=== PATIENT | female | born 1930 | race Caucasian/White ===

== ENCOUNTER 2016-05-27 02:34 | Emergency (ER) | payer MEDICARE, OTHER ==
[2016-05-27 03:28] LABS: BASOPHILS 0.1 % (0.0-2.0); EOSINOPHILS 14.3 % (0-7); HEMATOCRIT 38.1 % (36.0-48.0); HEMOGLOBIN 12.3 g/dL (12-16); IMMATURE GRANULOCYTES 0.4 % (0-5); MCH 31.3 pg (26.0-34.0); MCHC 32.3 g/dL (31.0-37.0); MCV 96.9 fL (80.0-100.0); MEAN PLATELET VOLUME 10.2 fL (7.4-10.4); MONOCYTES 7.5 % (2-11); NEUTROPHILS 65.7 % (40-80); PLATELET COUNT 226 10x3/uL (130-400); RBC 3.93 10x6/uL (4.00-5.40); RDW 13.7 % (11.5-14.5); WBC 12.2 10x3/uL (4.8-10.8)
[2016-05-27 03:38] LABS: ANION GAP 15.3 mmol/L (8-16); CALCIUM 9.2 mg/dL (8.5-10.1); CARBON DIOXIDE 25.2 mmol/L (21.0-32.0); CREATININE - SERUM 0.9 mg/dL (0.6-1.3); POTASSIUM - SERUM 3.5 mmol/L (3.5-5.1)
[2016-05-27 07:34] LABS: APPEARANCE CLEAR (CLEAR); BILIRUBIN NEGATIVE (NEGATIVE); COLOR YELLOW (YELLOW); GLUCOSE NEGATIVE (NEGATIVE); KETONE NEGATIVE (NEGATIVE); LEUKOCYTE ESTERASE TRACE (NEGATIVE); NITRITE NEGATIVE (NEGATIVE); PROTEIN NEGATIVE (NEGATIVE); SPECIFIC GRAVITY 1.015 (1.005-1.020); UROBILINOGEN NORMAL (NORMAL)
[2016-05-27 07:36] LABS: BACTERIA NONE SEEN /hpf (NONE SEEN); EPITHELIAL CELLS 0-5 /hpf (0-5); RED CELLS - URINE NONE SEEN /hpf (0-5); WHITE CELLS - URINE 0-5 /hpf (0-5)
[2016-05-30 13:41] VITALS: BMI 21.7
== END 2016-05-27 08:11 | disposition home or self-care (01) ==
LOC: EDBD 02:34 → D.ER 02:34
PROVIDERS: Emergency Medicine
DX: R41.82 Altered mental status, unspecified (principal); Z86.73 Personal history of transient ischemic attack (TIA), and cerebral infarction without residual deficits

== ENCOUNTER 2016-05-29 08:37 | Inpatient (IN) | payer MEDICARE, OTHER ==
[~2016-05-29] VITALS: Ht 170.2 cm; Wt 64.1 kg
[2016-05-29 09:17] LABS: BASOPHILS 0.3 % (0.0-2.0); EOSINOPHILS 14.4 % (0-7); HEMATOCRIT 35.7 % (36.0-48.0); HEMOGLOBIN 11.7 g/dL (12-16); IMMATURE GRANULOCYTES 0.2 % (0-5); LYMPHOCYTES 17.7 % (15-50); MCH 31.3 pg (26.0-34.0); MCHC 32.8 g/dL (31.0-37.0); MCV 95.5 fL (80.0-100.0); MONOCYTES 7.3 % (2-11); NEUTROPHILS 60.1 % (40-80); PLATELET COUNT 197 10x3/uL (130-400); RBC 3.74 10x6/uL (4.00-5.40); RDW 13.3 % (11.5-14.5); WBC 6.5 10x3/uL (4.8-10.8)
[2016-05-29 09:46] LABS: ALBUMIN 3.1 g/dL (3.4-5.0); ANION GAP 12.9 mmol/L (8-16); BILIRUBIN - TOTAL 0.83 mg/dL (0.2-1.3); CALCIUM 9.1 mg/dL (8.5-10.1); CARBON DIOXIDE 26.9 mmol/L (21.0-32.0); CREATININE - SERUM 0.9 mg/dL (0.6-1.3); POTASSIUM - SERUM 3.8 mmol/L (3.5-5.1)
[2016-05-29 09:57] LABS: TROPONIN-I 0.055 ng/mL (0.000-0.060)
--- NOTE | 2016-05-29 13:38 | NUR ---
REPORT RECIVED FROM SARAH ERNST IN ER. PT TO BE RECIVED TO ROOM 2140 AND PT TO HAVE MRI COMPLETED ONCE ARRIVED TO FLOOR REPORTED TO THIS NURSE THAT IV 18G TO LEFT AC AND 1000MG TYLENOL GIVEN IN ER FOR PAIN. WILL ASSESS PT ONCE ARRIVES TO FLOOR
[2016-05-29] MEDS ORDERED: AMOXICILLIN500 M1 PO (14:07)
--- NOTE | 2016-05-29 14:13 | NUR ---
PT ARRIVED FROM ER TO ROOM 2139 BY WHEELCHAIR FAMILY IN ROOM AT BEDSIDE HX COMPLETED AND MEDICATIONS REVIEWED FAMILY REPORTED THAT PT " HAS NOT TAKEN ANY OF HER MEDICATIONS IN ABOUT A MOUNTH OR SO AND I DONT KNOW WHAT SHE IS ALL ON AMOXICILLIN SHE TOOK YESTERDAY AND THAT WAS THE LAST TIME SHE TOOK ANY MEDS" SHERIE OWEN NOTIFIED OF PT ARRIVAL AND PT INFORMED THAT SHE IS TO BE TAKEN TO MRI RESPERATIONS EVEN AND UNLABORED WITH NO DISTRESS OBSERVED BED LOW AND LOKCED CALL LIGHT IN REACH SRX 2 BED ALARM IN AND WORKING WILL MONITOR
[2016-05-29 15:00] VITALS: BP 116/50
--- NOTE | 2016-05-29 16:54 | NUR ---
UP TO BSC . HAD A BM-SOFT STOOL. ASSISTED BACK TO BED. WILL CONTINUE TO MONITOR
--- NOTE | 2016-05-29 19:25 | NUR ---
RECEIVED REPORT, IV-SOPHIE-FADIA, [id number], BED IS LOW, SRX2, EXPLAINED HOW TO USE CALL LIGHT, CALL LIGHT IN REACH, WILL CONTINUE TO MONITOR
[2016-05-29 20:00] VITALS: BP 161/89
[2016-05-29 22:14] VITALS: BP 116/50; BMI 21.9
--- NOTE | 2016-05-30 00:27 | NUR ---
MATE FIRST AT BEDSIDE FOR VS, NEEDS ADDRESSED. CALL LIGHT IN REACH. WILL CONT TO MONITOR.
[2016-05-30 02:00] VITALS: BP 159/73
[2016-05-30 04:00] VITALS: BP 132/70
--- NOTE | 2016-05-30 04:04 | NUR ---
ASSIST TO BEDSIDE COMMODE, PLACED BACK IN BED, CALL LIGHT IN REACH, BED ALARM ON, WILL CONTINUE TO MONITOR
[2016-05-30 06:07] LABS: BASOPHILS 0.3 % (0.0-2.0); EOSINOPHILS 7.6 % (0-7); HEMATOCRIT 35.6 % (36.0-48.0); HEMOGLOBIN 11.5 g/dL (12-16); IMMATURE GRANULOCYTES 0.1 % (0-5); LYMPHOCYTES 20.8 % (15-50); MCH 30.7 pg (26.0-34.0); MCHC 32.3 g/dL (31.0-37.0); MCV 94.9 fL (80.0-100.0); MEAN PLATELET VOLUME 11.1 fL (7.4-10.4); MONOCYTES 9.2 % (2-11); PLATELET COUNT 202 10x3/uL (130-400); RBC 3.75 10x6/uL (4.00-5.40); RDW 13.1 % (11.5-14.5); WBC 6.9 10x3/uL (4.8-10.8)
[2016-05-30 06:19] LABS: ALKALINE PHOSPHATASE 68 U/L (46-116); BILIRUBIN - TOTAL 0.78 mg/dL (0.2-1.3); CALC OSMOLALITY 278 mosm/kg (275-300); CALCIUM 8.7 mg/dL (8.5-10.1); CARBON DIOXIDE 25.8 mmol/L (21.0-32.0); CHLORIDE - SERUM 106 mmol/L (98-107); CREATININE - SERUM 0.7 mg/dL (0.6-1.3); GLUCOSE 97 mg/dL (74-106); POTASSIUM - SERUM 3.5 mmol/L (3.5-5.1); PROTEIN - SERUM 6.7 g/dL (6.4-8.2); SODIUM 140 mmol/L (136-145); UREA NITROGEN 12 mg/dL (7-18); eGFR NON AFRICAN AMERICAN 84 mL/min (90-120)
[2016-05-30 06:20] LABS: ALT (SGPT) 11 U/L (10-68)
--- NOTE | 2016-05-30 07:38 | NUR ---
RECEIVED PT REPORT. NO OTHER NEEDS AT THIS TIME. WILL CONTINUE PLAN OF CARE.
[2016-05-30 08:39] VITALS: BP 136/64
--- NOTE | 2016-05-30 10:50 | NUR ---
PT IS ALERT. ASSESSMENT DONE PER FLOWSHEET. NO CO PAIN AT THIS TIME. WILL CONTINUE TO MONTIOR.
[2016-05-30 13:41] VITALS: Ht 170.2 cm; Wt 64.1 kg
--- NOTE | 2016-05-30 15:23 | HP ---
PATIENT: SHAJI PIRES MEDICAL RECORD: [id number] ACCOUNT: [id number] LOCATION:[facility] D.2140 : 30 ADMISSION DATE: 05/29/16 HISTORY AND PHYSICAL EXAMINATION HISTORY OF PRESENT ILLNESS: Ms. Pires is an 85-year-old patient, who have healthy connections are presents after having a fall. She lives alone with her sister. She denies any tripping or dizziness. She is wearing a LifeVest, which apparently fired. She is accompanied by her daughter today. Dr. Carrillo is her breaker off. She is complaining of low back pain, worse since her fall. PAST MEDICAL HISTORY: Significant for dementia, myocardial infarction in ____ year. Since that time, she has been wearing a LifeVest. She apparently had some arrhythmias afterwards, also has hypertension. PREVIOUS SURGERIES: Include gallbladder. ALLERGIES: None known. HOME MEDICATIONS: She was taking some amoxicillin recently. FAMILY HISTORY: Noncontributory. SOCIAL HISTORY: She is not a smoker. 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 She has been staying with her sister here in [place]. REVIEW OF SYSTEMS: She has had some memory issues, some weakness in her recent fall. She denies any chest pain, any dizziness, any palpitations. She denies any shortness of breath. She denies any change in bladder or bowel function. She is complaining of back pain. PHYSICAL EXAMINATION: HEENT: Head is normocephalic, sclerae nonicteric. NECK: Soft and supple. HEART: Regular. LUNGS: Clear. ABDOMEN: Soft. No rebound, no guarding, no mass. NEUROLOGIC: Without any gross focal deficits. IMPRESSIONS: 1. Apparent firing of LifeVest. 2. Low back pain, worrisome for compression fracture, dementia and coronary artery disease with myocardial infarction approximately 4 months ago, cardiac arrhythmia. PLAN: Place her on telemetry. We will get MRI of lumbar spine. Consult cardiology. LifeVest, people have already been here to interrogate Vest and were still waiting on what that showed. Telemetry to see orders for rest of the plan. TRANSINT:[id number] Voice Confirmation ID: [id number] DOCUMENT ID: [id number] HISTORY AND PHYSICAL [id number] SHAJI PIRES MATTHEW DO at 1523 CC: [id number] DICTATION DATE: 05/29/16 164 PROFESSOR OF MECHANICAL ENGINEERING: 05/29/16 1908 ADM IN [facility] [address] [id number]
[2016-05-30 15:42] VITALS: BP 139/63
--- NOTE | 2016-05-30 20:00 | NUR ---
PT RESTING IN BED. DAUGHTER AT BEDSIDE. ALERT/ORIENTED WITH SOME INTERMITENT CONFUSION/FORGETFULNESS. SALINE LOCK TO LEFT A/C. SR PER TELEMETRY. FALL PRECAUTIONS/BED ALARM ON. SEE COMPLETED SHIFT ASSESSMENT. CPOC.
[2016-05-30 21:03] VITALS: BP 121/73
--- NOTE | 2016-05-30 23:59 | NUR ---
FREQUENTLY IN ROOM TO RESET BED ALARM SINCE PT IS PRONE TO SIT ON SIDE OF BED AND "JUST BE". CLOSE SUPERVISION.
[2016-05-31 01:48] VITALS: BP 117/69
--- NOTE | 2016-05-31 04:04 | NUR ---
DISCONTINUED PT'S ORDERED MORPHINE AT THIS TIME DUE TO FAMILY STATES PT BECOMES VERY CONFUSED/AGITATED/RESTLESS AND DIFFICULT TO HANDLE WHEN GIVEN MORPHINE. LISTED NOW ADR FOR PATIENT.
--- NOTE | 2016-05-31 05:23 | NUR ---
ASSISTED UP TO USE BEDSIDE COMMODE. PT VOIDED THEN ASSISTED BACK TO BED. PT HAS BEEN AWAKE MOST OF THE NIGHT, YET TELLS NURSE "WELL I SURE HAVE BEEN ASLEEP ALOT". VERY POOR SHORT TERM RECALL.
[2016-05-31 06:00] VITALS: BP 152/84
[2016-05-31 06:28] LABS: BASOPHILS 0.1 % (0.0-2.0); EOSINOPHILS 8.1 % (0-7); HEMATOCRIT 34.6 % (36.0-48.0); HEMOGLOBIN 11.3 g/dL (12-16); IMMATURE GRANULOCYTES 0.1 % (0-5); LYMPHOCYTES 20.4 % (15-50); MCH 30.9 pg (26.0-34.0); MCHC 32.7 g/dL (31.0-37.0); MCV 94.5 fL (80.0-100.0); MEAN PLATELET VOLUME 10.4 fL (7.4-10.4); MONOCYTES 12.9 % (2-11); NEUTROPHILS 58.4 % (40-80); PLATELET COUNT 206 10x3/uL (130-400); RBC 3.66 10x6/uL (4.00-5.40); RDW 13.4 % (11.5-14.5); WBC 7.1 10x3/uL (4.8-10.8)
[2016-05-31 07:09] LABS: ALKALINE PHOSPHATASE 73 U/L (46-116); ALT (SGPT) 16 U/L (10-68); BILIRUBIN - TOTAL 0.51 mg/dL (0.2-1.3); CALC OSMOLALITY 283 mosm/kg (275-300); CALCIUM 8.8 mg/dL (8.5-10.1); CARBON DIOXIDE 25.8 mmol/L (21.0-32.0); CHLORIDE - SERUM 107 mmol/L (98-107); CREATININE - SERUM 0.7 mg/dL (0.6-1.3); GLUCOSE 112 mg/dL (74-106); POTASSIUM - SERUM 3.5 mmol/L (3.5-5.1); PROTEIN - SERUM 6.6 g/dL (6.4-8.2); SODIUM 142 mmol/L (136-145); UREA NITROGEN 13 mg/dL (7-18); eGFR NON AFRICAN AMERICAN 84 mL/min (90-120)
[2016-05-31 08:00] VITALS: BP 110/58
--- NOTE | 2016-05-31 08:44 | NUR ---
PT JAYRO/WARREN PIRES CALLED TO ADVISE NOT TO PROCEED WITH BACK SURGERY AND OK TO SEND TO REHAB. I ADVISED I WOULD RELAY THIS INFORMATION TO SHERIE/PING WITH DR. DANIELS. SHE STATED SHE COULD BE REACHED AT [phone] IF NEEDED FOR FURTHER QUESTIONS.
--- NOTE | 2016-05-31 09:58 | NUR ---
PT IS ALERT. ASSESSMENT DONE PER FLOWSHEET. NO OTHER NEEDS AT THIS TIME. WILL CONTINUE TO MONITOR.
[2016-05-31 12:00] VITALS: BP 110/62
[2016-05-31 16:00] VITALS: BP 111/69
--- NOTE | 2016-05-31 19:17 | NUR ---
Received report from Yue ERNST.
--- NOTE | 2016-05-31 19:32 | NUR ---
Received patient sitting up in bed visiting with daughter at bedside, bed alarm on, Left AC PIV is SL, groundwater monitoring technician on, rhythm is SR with occasional PVCs. Oriented to person and place at this time, somewhat anxious. Will check for antianxiety medication available.
--- NOTE | 2016-05-31 20:44 | NUR ---
SHERIE MICHAEL APN PAGED FOR PAIN MEDS AND SLEEP AID, AWAITING CALL BACK.
--- NOTE | 2016-05-31 20:53 | NUR ---
Given Tylenol with codeine tab by another clinician as per MD orders for back pain rated 10/10. Patient states she fell 2 weeks ago and hurt her back. Also given Melatonin 3mg po PRN for sleep.
[2016-05-31 21:39] VITALS: BP 102/71
--- NOTE | 2016-06-01 01:00 | NUR ---
PRNs deemed effective, has been sleeping x 2 hours, respirations easy and regular, no restlessness noted.
[2016-06-01 01:40] VITALS: BP 107/69
--- NOTE | 2016-06-01 02:07 | NUR ---
Given Tylenol #3 given for severe back pain and generalized aches and pains, rated 10/10. Extremely anxious, hyperventillating, having panic attack, talked with patient for verbal 1:1. Encouraged to take deep breaths and calm behavior. Assisted back into bed, had been sitting up. Will continue to monitor.
[2016-06-01 04:56] VITALS: BP 113/46
[2016-06-01 06:05] LABS: BASOPHILS 0.1 % (0.0-2.0); EOSINOPHILS 11.9 % (0-7); HEMATOCRIT 33.3 % (36.0-48.0); HEMOGLOBIN 10.9 g/dL (12-16); IMMATURE GRANULOCYTES 0.1 % (0-5); LYMPHOCYTES 23.8 % (15-50); MCH 31.1 pg (26.0-34.0); MCHC 32.7 g/dL (31.0-37.0); MCV 94.9 fL (80.0-100.0); MEAN PLATELET VOLUME 10.3 fL (7.4-10.4); MONOCYTES 11.3 % (2-11); NEUTROPHILS 52.8 % (40-80); PLATELET COUNT 224 10x3/uL (130-400); RBC 3.51 10x6/uL (4.00-5.40); RDW 13.5 % (11.5-14.5); WBC 6.8 10x3/uL (4.8-10.8)
[2016-06-01 06:25] LABS: ALBUMIN 2.8 g/dL (3.4-5.0); ANION GAP 11.7 mmol/L (8-16); BILIRUBIN - TOTAL 0.5 mg/dL (0.2-1.3); CALCIUM 8.4 mg/dL (8.5-10.1); CARBON DIOXIDE 26.6 mmol/L (21.0-32.0); CREATININE - SERUM 0.8 mg/dL (0.6-1.3); POTASSIUM - SERUM 3.3 mmol/L (3.5-5.1); PROTEIN - SERUM 6.1 g/dL (6.4-8.2)
--- NOTE | 2016-06-01 07:17 | NUR ---
Given potassium supplement per electrolyte protocol for K+ = 3.3
[2016-06-01 08:01] VITALS: BP 153/67
--- NOTE | 2016-06-01 08:32 | NUR ---
PATIENT IS AWAKE AND ALERT, SHE RATES PAIN 5/10 ONLY IF SHE MOVES, BUT SHE SAYS SHE IS OK RIGHT NOW.
--- NOTE | 2016-06-01 11:48 | NUR ---
Is the patient Alert and Oriented? Yes 0 * How many steps to enter\exit or inside your home? 5 0 * PCP DR. LAZAR IN [place] 0 * Pharmacy [facility] 0 * Preadmission Environment Home with Family 0 * ADLs Independent 0 * Equipment Walker 0 * List name and contact numbers for known caregivers / representatives who currently or will assist patient after discharge: DAUGHTER: WARREN PIRES [phone] SISTER: ASHLEY HERNANDEZ [phone] 0 * Community resources currently utilized None 0 * Additional services required to return to the preadmission environment? No 0 * Can the patient safely return to the preadmission environment? Yes 0 * Has this patient been hospitalized within the prior 30 days at any hospital? No PATIENT IS AWAKE AND ALERT. SHE STATES SHE LIVES AT HOME WITH HER SISTER, ASHLEY HERNANDEZ. SHE STATES THAT HER MD IS DR. LAZAR IN [place]. PATIENT GETS HER MEDS FROM [facility]. SHE TELLS ME SHE HAS A WALKER SHE UTILIZES AT HOME. PATIENT DENIES HOME HEALTH CARE. PATIENT UNSURE ABOUT SOME OF HER ANSWERS AND STATES I NEED TO TALK TO HER DAUGHTER LATER THIS AFTERNOON. PATIENT MAY BENEFIT FROM ACUTE REHAB. SHE STATES I SHOULD TALK TO HER DAUGHTER ABOUT THAT. PATIENT WAS GIVEN IMM AND EXPLAINED. PATIENT SIGNED AND STATED SHE WILL GIVE IT TO HER DAUGHTER LATER TODAY. CM TO FOLLOW.
[2016-06-01 12:24] VITALS: BP 116/68
[2016-06-01] MEDS ORDERED: HYDROCODON-ACE1 EAC7 PO (13:32)
[2016-06-01] MEDS ORDERED: ACETAMINOPHEN325 MG PO (13:33)
[2016-06-01] MEDS ORDERED: COREG6.25 MG PO (13:34)
[2016-06-01] MEDS ORDERED: ARICEPT5 MG PO (13:34)
[2016-06-01] MEDS ORDERED: ALDACTONE25 MG PO (13:35)
[2016-06-01] MEDS ORDERED: ZOCOR20 MG PO (13:35)
[2016-06-01] MEDS ORDERED: LISINOPRIL5 MG PO (13:35)
[2016-06-01] MEDS ORDERED: TRAZODONE HCL50 MG PO (13:36)
[2016-06-01] MEDS ORDERED: CELEXA20 MG PO (13:36)
--- NOTE | 2016-06-01 13:38 | NUR ---
RECEIVED MEDICATION LIST. PATIENT AND DAUGHTER SAY ONE OF THE MEDS GIVES HER DIARRHEA, BUT SHE WAS PRESCRIBED BENTYL, UNSURE OF DOSE OR TIMES.
--- NOTE | 2016-06-01 14:54 | NUR ---
SPOKE WITH PATIENT, HER DAUGHTER, AND DR. DANIELS. PATIENT'S DAUGHTER WANTS HER TO GO TO [facility] IN [place]. SHE STATES IT IS CLOSE TO HER HOME AND IT WOULD BE EASIER FOR HER THAN HERE IN [place]. I PHONED ACUTE REHAB AT [facility] AT [phone]. I HAVE FAXED HER INFORMATION TO [facility] AT [phone]. WILL AWAIT RESPONSE. I HAVE LET THE PATIENT AND HER DAUGHTER KNOW OF THE REFERRAL AND WILL LET THEM KNOW WHEN WE HEAR BACK FROM THEM. CM TO FOLLOW.
--- NOTE | 2016-06-01 15:00 | NUR ---
WENT INTO PATIENT'S ROOM AND LOOKED AT THE COMPUTER SHE SAID "OH YOU CAN TURN THAT OFF" BUT THEN SHE SAID "I DIDN'T WANT THE TV OFF". PATIENT HAS INTERMITTANT CONFUSION.
[2016-06-01 16:00] VITALS: BP 109/70
--- NOTE | 2016-06-01 16:50 | NUR ---
ASSISTED PATIENT TO BSC, SHE IS SOMEWHAT CONFUSED, BUT SHE DOES UNDERSTAND ENOUGH NOT TO GET UP BY HERSELF DURING THE DAY.
--- NOTE | 2016-06-01 18:00 | NUR ---
DENIES ANY NEEDS AT THIS TIME.
[2016-06-01 20:00] VITALS: BP 114/73
[2016-06-02] VITALS: BP 123/69
[2016-06-02 04:00] VITALS: BP 128/70
[2016-06-02 05:35] LABS: APPEARANCE CLEAR (CLEAR); BILIRUBIN NEGATIVE (NEGATIVE); COLOR YELLOW (YELLOW); GLUCOSE NEGATIVE (NEGATIVE); KETONE NEGATIVE (NEGATIVE); LEUKOCYTE ESTERASE NEGATIVE (NEGATIVE); NITRITE NEGATIVE (NEGATIVE); PROTEIN NEGATIVE (NEGATIVE); SPECIFIC GRAVITY 1.015 (1.005-1.020); UROBILINOGEN NORMAL (NORMAL)
[2016-06-02 06:46] LABS: BASOPHILS 0.6 % (0.0-2.0); EOSINOPHILS 16.4 % (0-7); HEMATOCRIT 32.8 % (36.0-48.0); HEMOGLOBIN 10.6 g/dL (12-16); IMMATURE GRANULOCYTES 0.1 % (0-5); LYMPHOCYTES 23.1 % (15-50); MCH 30.9 pg (26.0-34.0); MCHC 32.3 g/dL (31.0-37.0); MCV 95.6 fL (80.0-100.0); MEAN PLATELET VOLUME 10.4 fL (7.4-10.4); MONOCYTES 11.2 % (2-11); NEUTROPHILS 48.6 % (40-80); PLATELET COUNT 234 10x3/uL (130-400); RBC 3.43 10x6/uL (4.00-5.40); RDW 13.8 % (11.5-14.5); WBC 6.7 10x3/uL (4.8-10.8)
--- NOTE | 2016-06-02 06:47 | NUR ---
ASSISTED PT UP TO BEDSIDE COMMODE SEVERAL TIMES TO VOID. COLLECTED URINE AND SENT TO LAB. WILL CONTNUE TO MONITOR.
[2016-06-02 07:06] LABS: ALBUMIN 2.8 g/dL (3.4-5.0); ANION GAP 9.9 mmol/L (8-16); BILIRUBIN - TOTAL 0.39 mg/dL (0.2-1.3); CALCIUM 8.4 mg/dL (8.5-10.1); CARBON DIOXIDE 28.1 mmol/L (21.0-32.0); CREATININE - SERUM 0.8 mg/dL (0.6-1.3); PROTEIN - SERUM 6.2 g/dL (6.4-8.2)
--- NOTE | 2016-06-02 08:02 | NUR ---
ASSESSMENT DONE. PT SITTING UP ON SIDE OF BED, READING NEWS PAPER. A/O X3. DENIES PAIN OR NEEDS AT THIS TIME. NO DISTRESS NOTED. CALL LIGHT WITH IN REACH. WILL CONT. TO MONITOR.
[2016-06-02 08:22] VITALS: BP 129/64
--- NOTE | 2016-06-02 10:26 | NUR ---
WALKING IN HALLWAY WITH THERAPY TOLERATING WELL
--- NOTE | 2016-06-02 11:34 | NUR ---
06/02/2016 10:50 DCP: Discharge Planning Referral as sent yesterday to [facility] in [place] yesterday afternoon by ANJU Michel (Not [facility]). Rec'd call from Jessie with [facility] - they have accepted patient & will transport via facility van today at 1300. Patient will transfer to a halfway bed. Nursing to call report to , 2nd Floor. Spoke with daughter, Nicol García via telephone. She is agreeable to POC. She states she will meet patient at the facility to complete admission paperwork. Answered questions. [facility] [address] [facility], [place] - - Fax
--- NOTE | 2016-06-02 11:35 | NUR ---
06/02/2016 10:50 DCP: Discharge Planning Referral as sent yesterday to [facility] in [place] yesterday afternoon by ANJU Michel (Not [facility]). Rec'd call from Jessie with [facility] - they have accepted patient & will transport via facility van today at 1300. Patient will transfer to a senior care bed. Nursing to call report to , 2nd Floor. Spoke with daughter, Nicol García via telephone. She is agreeable to POC. She states she will meet patient at the facility to complete admission paperwork. Answered questions. [facility] [address] [facility], [place] - - Fax
--- NOTE | 2016-06-02 12:04 | NUR ---
REPORT CALLED TO [facility] AND [facility] @ [phone]. FACILITY TRANSPORTATION WILL PICK PT UP AT 1300.
[2016-06-02 12:42] VITALS: BP 138/77
--- NOTE | 2016-06-02 12:42 | NUR ---
NURSE WENT OVER D/C INSTRUCTIONS WITH PT. IV REMOVED, AND TELEMETRY REMOVED. NURSE ASSITED PT WITH DRESSING, AND WITH PACKING BELONGINGS. PT TO D/C TO [facility], AWAITING FACILITY TRANSPORTATION TO ARRIVE.
--- NOTE | 2016-06-02 13:54 | NUR ---
PT D/C'D TO REHAB FACILITY VIA FACILITY TRANSPORTATION. CALLED PT'S DAUGHTER WARREN AND NOTIFIED HER OF PT'S DEPARTURE. PT'S BELONGINGS WENT WITH PT.
== END 2016-06-02 13:52 | DRG 552 ==
LOC: EDBD 08:37 → D.ER 08:37 → D.M2 13:28
PROVIDERS: Family Medicine; Specialist; ADMIT Family Medicine
DX: S32.059A Unspecified fracture of fifth lumbar vertebra, initial encounter for closed fracture (principal); I42.9 Cardiomyopathy, unspecified; Z95.811 Presence of heart assist device; W19.XXXA Unspecified fall, initial encounter; I25.10 Atherosclerotic heart disease of native coronary artery without angina pectoris; I11.0 Hypertensive heart disease with heart failure; I50.9 Heart failure, unspecified; F03.90 Unspecified dementia, unspecified severity, without behavioral disturbance, psychotic disturbance, mood disturbance, and anxiety; Z98.61 Coronary angioplasty status; M54.16 Radiculopathy, lumbar region

== ENCOUNTER 2017-06-06 11:37 | Inpatient (IN) | payer MEDICARE ==
--- NOTE | ~2017-06-06 | PN ---
PATIENT:SHAJI PIRES MEDICAL RECORD: [id number] LOCATION:[facility] ADMISSION DATE: 06/06/17 PROGRESS NOTE DATE OF SERVICE: 06/16/2017 SUBJECTIVE: The patient's case was discussed with staff. She has no new complaint. OBJECTIVE: The patient is demented, but not acutely dangerous. ASSESSMENT: No change in diagnoses. PLAN: Once placement is arranged, the patient will be transitioned out of the hospital. TRANSINT:[id number] Voice Confirmation ID: [id number] DOCUMENT ID: [id number] FREDI CENTENO MD at 1844 CC: [id number] DICTATION DATE: 06/16/17 1111 MATHEMATICIAN RESEARCH: 06/17/17 0057 ADM IN [id number] [place] [address]
--- NOTE | ~2017-06-06 | PN ---
PATIENT:SHAJI PIRES MEDICAL RECORD: [id number] LOCATION:[facility] ADMISSION DATE: 06/06/17 PROGRESS NOTE DATE OF SERVICE: 06/11/2017 SUBJECTIVE: The patient's case was discussed with staff. She has no new complaint. OBJECTIVE: The patient is impaired cognitively. She denies that she would seek to harm herself or others. ASSESSMENT: No change in diagnoses. PLAN: Current medicines have been reviewed and will be maintained. Long-term prognosis is guarded. TRANSINT:[id number] Voice Confirmation ID: [id number] DOCUMENT ID: [id number] FREDI CENTENO MD at 1344 CC: [id number] DICTATION DATE: 06/11/17 1432 GEOPHYSICAL PROSPECTING SURVEYOR: 06/11/17 1450 ADM IN [place] [id number] [place] [address]
--- NOTE | ~2017-06-06 | PN ---
PATIENT:SHAJI PIRES MEDICAL RECORD: [id number] LOCATION:[facility] ADMISSION DATE: 06/06/17 PROGRESS NOTE DATE OF SERVICE: 06/18/2017 SUBJECTIVE: The patient's case was discussed with staff. She has no new complaint. OBJECTIVE: The patient is in good behavioral control with limited insight about her condition. She tolerates her medicines well. ASSESSMENT: No change in diagnoses. PLAN: I anticipate the patient will be transitioned out of the hospital soon. Her long-term prognosis is guarded. TRANSINT:[id number] Voice Confirmation ID: [id number] DOCUMENT ID: [id number] FREDI CENTENO MD at 1016 CC: [id number] DICTATION DATE: 06/18/171910 KIDS ACTIVITIES COACH: 06/19/17 0338 ADM IN [facility] [address] [place] [address]
--- NOTE | ~2017-06-06 | PN ---
PATIENT:SHAJI PIRES MEDICAL RECORD: [id number] LOCATION:[facility] ADMISSION DATE: 06/06/17 PROGRESS NOTE DATE OF SERVICE: 06/20/2017 SUBJECTIVE: The patient's case was discussed with staff. She has no new complaint. OBJECTIVE: The patient is in good behavioral control. She is eating and sleeping reasonably well. ASSESSMENT: No change in diagnoses. PLAN: The patient will be transitioned out of the hospital tomorrow. Her long-term prognosis is guarded. Supportive and educational interventions were made. Follow up is to be with her primary care physician. TRANSINT:[id number] Voice Confirmation ID: [id number] DOCUMENT ID: [id number] FREDI CENTENO MD at 1403 CC: [id number] DICTATION DATE: 06/20/17 1457 BEAM SAW OPERATOR: 06/20/17 1609 ADM IN [place] [id number] [place] [id number]
--- NOTE | ~2017-06-06 | PN ---
PATIENT:SHAJI PIRES MEDICAL RECORD: [id number] LOCATION:[facility] ADMISSION DATE: 06/06/17 PROGRESS NOTE DATE OF SERVICE: 06/19/2017 SUBJECTIVE: The patient's case was discussed with staff. She has no new complaint. OBJECTIVE: The patient denies intent to harm herself or others. She is generally tolerating her medicines well. ASSESSMENT: No change in diagnoses. PLAN: The patient may be transitioned to the senior care as soon as placement is arranged. TRANSINT:[id number] Voice Confirmation ID: [id number] DOCUMENT ID: [id number] FREDI CENTENO MD at 1444 CC: [id number] DICTATION DATE: 06/19/17 1525 PATTERN CLERK: 06/19/17 1606 ADM IN [place] [id number] [place] [address]
--- NOTE | ~2017-06-06 | PN ---
PATIENT:SHAJI PIRES MEDICAL RECORD: [id number] LOCATION:[facility] ADMISSION DATE: 06/06/17 PROGRESS NOTE DATE OF SERVICE: 06/08/2017 SUBJECTIVE: No new complaint. OBJECTIVE: The patient continues to show confusion and anxiety. She is resistant to activities of daily living and tends to be noncompliant. On exam, mood is anxious. Affect is expansive and somewhat histrionic. Speech is tangential. Content of thought focuses on somatic complaints. Sensorium does not show change. ASSESSMENT: No change in diagnoses. PLAN: 1. Maintain current medication. 2. Continue supportive therapy. TRANSINT:[id number] Voice Confirmation ID: [id number] DOCUMENT ID: [id number] RAAD JIMENEZ III, MD at 1341 CC: [id number] DICTATION DATE: 06/08/17 1150 INSTRUCTOR MILITARY SCIENCE: 06/08/17 1202 ADM IN [facility] [address] [place] [address]
--- NOTE | ~2017-06-06 | PN ---
PATIENT:SHAJI PIRES MEDICAL RECORD: [id number] LOCATION:[facility] ADMISSION DATE: 06/06/17 PROGRESS NOTE DATE OF SERVICE: 06/15/2017 SUBJECTIVE: No new complaint. OBJECTIVE: The patient is pleasant on approach. Mood is euthymic. Affect is very bland. Speech is terse. Content of thought negative for overt psychosis. Sensorium unchanged. ASSESSMENT: No change in diagnosis. PLAN: 1. Maintain current medication. 2. Continue supportive therapy. TRANSINT:[id number] Voice Confirmation ID: [id number] DOCUMENT ID: [id number] RAAD JIMENEZ III, MD at 1037 CC: [id number] DICTATION DATE: 06/15/17 1118 MANAGER EXPORT: 06/15/17 1349 ADM IN [place] [address] [place] [address]
--- NOTE | ~2017-06-06 | PN ---
PATIENT:SHAJI PIRES MEDICAL RECORD: [id number] [facility] ADMISSION DATE: 06/06/17 PROGRESS NOTE DATE OF SERVICE: 06/14/2017 The patient is ready for discharge. Discharge plans are in place. We are waiting for the retirement to accept her and then she can be transitioned out of the hospital. There are no acute or new clinical needs that need to be addressed. TRANSINT:[id number] Voice Confirmation ID: [id number] DOCUMENT ID: [id number] FREDI CENTENO MD at 0804 CC: [id number] DICTATION DATE: 06/14/17 1417 QUALITY ASSURANCE PROJECT MANAGER: 06/14/17 1431 ADM IN [address] [id number] [place] [address]
--- NOTE | ~2017-06-06 | DS ---
PATIENT:SHAJI PIRES :30 MEDICAL RECORD: [id number] DISCHARGE SUMMARY ADMISSION DATE: 06/06/17 DISCHARGE DATE: 06/21/17 IDENTIFYING DATA: The patient is 86 years old and she was admitted to the hospital on a voluntary basis because of suicidal statements. The patient apparently had been frustrated and was having thoughts of killing herself and made some verbal threats that she would do so. Apparently, she has made these statements regularly and when asked about it, she minimizes what she is saying and says that she get did not really have a plan or intent. I am not sure I understand why this particular incident precipitated a referral to inpatient services and the patient was not very helpful in explaining that. She clearly is impaired cognitively and she does endorse a number of neurovegetative depressive symptoms. HOSPITAL COURSE: The patient was admitted to the hospital and fully evaluated from both a medical, psychological, and social standpoint. She will be treated with both mood stabilizing and memory enhancing medications. Her long-term prognosis is guarded. She was subsequently returned to long-term care and did not represent an acute danger at the time of discharge. DISCHARGE DIAGNOSES: AXIS I: 1. Senile dementia of the Alzheimer's type with behavioral disturbances. 2. 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 AXIS II: None. AXIS III: Hypertension, coronary artery disease, cardiac arrhythmia. AXIS IV: Moderate stressors. AXIS V: Global assessment of functioning is 40. PLAN: At the time of discharge, the patient was in good behavioral control and did not represent an acute risk to herself or others. Her long-term prognosis is guarded. TRANSINT:[id number] Voice Confirmation ID: [id number] DOCUMENT ID: [id number] FREDI CENTENO MD at 1419 CC: [id number] DICTATION DATE: 06/28/17 1341 LEATHER GRADER: 06/28/17 1347 DIS IN 06/21/17 [place] [id number] [place] [id number]
--- NOTE | ~2017-06-06 | PSY ---
PATIENT NAME:SHAJI PIRES MEDICAL RECORD: [id number] : 30 LOCATION:[facility] ADMISSION DATE: 06/06/17 ACCOUNT: [id number] PSYCHIATRIC EVALUATION DATE OF EVALUATION: 06/07/17 IDENTIFYING DATA: The patient is 86 years old and she is admitted to the hospital on a voluntary basis. CHIEF COMPLAINT: Suicidal statements. HISTORY OF PRESENT ILLNESS: The patient apparently has been frustrated and has been threatening to kill herself. She apparently makes these demands regularly, but when asked about it, she very much minimizes that she would do so and says she does not have a plan or intent. She does endorse a number of neurovegetative depressive symptoms and she also has clear evidence of an advanced dementia. PAST MEDICAL HISTORY: Significant for myocardial infarction and hypertension. PAST PSYCHIATRIC HISTORY: Significant for an established diagnosis of dementia and an anxiety disorder. FAMILY HISTORY: Unknown. ALLERGIES: MORPHINE. CURRENT MEDICATIONS: Include Coreg, Aricept, Tylenol, Aldactone, Zocor, Celexa, and trazodone. FAMILY HISTORY: Negative for psychiatric problems by her report. SOCIAL HISTORY: The patient is . She does have adult children who are involved with her care. She apparently lives with her sister, but has a daughter who lives out of town, who is her power of deputy commonwealth's attorney. MENTAL STATUS EXAMINATION: The patient is awake, alert, and oriented to person, place, and somewhat to time and situation. Her mood is flat. Her affect is constricted. Thought processes are circumstantial. Memory, concentration, and abstraction abilities are at least moderately impaired and she denies that she would actively seek to harm herself or others as well as any overt psychotic symptoms. ASSETS: Supportive family members. LIABILITIES: Limited insight. DIAGNOSTIC IMPRESSION: AXIS I: Senile dementia of the Alzheimer's type with behavioral disturbances. 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 AXIS II: Deferred. AXIS III: Hypertension, coronary artery disease, and cardiac arrhythmia. AXIS IV: Moderate stressors. AXIS V: Global assessment of functioning is 35. PLAN: At this time, the patient is going to be treated with mood stabilizing and memory enhancing medications. She will be monitored for clinical changes associated with this. Her long-term prognosis is guarded. TRANSINT:[id number] Voice Confirmation ID: [id number] DOCUMENT ID: [id number] FREDI CENTENO MD at 1403 CC: [id number] DICTATION DATE: 06/07/17 140 PHOTOGRAPHER: 06/07/17 1418 ADM IN [facility] [address] [place] [id number]
--- NOTE | ~2017-06-06 | PN ---
PATIENT:SHAJI PIRES MEDICAL RECORD: [id number] LOCATION:[facility] ADMISSION DATE: 06/06/17 PROGRESS NOTE DATE OF SERVICE: 06/13/2017 SUBJECTIVE: The patient's case was discussed with staff. She has no new complaint. OBJECTIVE: The patient is in good behavioral control and has not been aggressive today. ASSESSMENT: No change in diagnoses. PLAN: Supportive and educational interventions were made. Long-term prognosis is guarded. TRANSINT:[id number] Voice Confirmation ID: [id number] DOCUMENT ID: [id number] FREDI CENTENO MD at 1341 CC: [id number] DICTATION DATE: 06/13/17 1238 FACILITIES ENGINEER: 06/13/17 1303 ADM IN [place] [id number] [place] [id number]
--- NOTE | ~2017-06-06 | PN ---
PATIENT:SHAJI PIRES MEDICAL RECORD: [id number] LOCATION:[facility] ADMISSION DATE: 06/06/17 PROGRESS NOTE DATE OF SERVICE: 06/12/2017 SUBJECTIVE: The patient's case was discussed with staff. She has no new complaint. OBJECTIVE: The patient is severely impaired cognitively, but not openly aggressive or hostile. She is tolerating her medicines well. Dr. Mi tested her today and as I expected, she scored in the severe range. Because of circumstances and reasons documented elsewhere, the patient is not going to go home, but to a [facility]. I think once those arrangements have been made, she can be transitioned to the [facility]. TRANSINT:[id number] Voice Confirmation ID: [id number] DOCUMENT ID: [id number] FREDI CENTENO MD at 1218 CC: [id number] DICTATION DATE: 06/12/17 1454 WILDLIFE REMOVAL SPECIALIST: 06/12/17 1535 ADM IN [facility] [id number] [place] [address]
[~2017-06-06 11:37] MED LIST: ACETAMINOPHEN325 MG PO; ALDACTONE25 MG PO; AMOXICILLIN500 M1 PO; ARICEPT5 MG PO; CELEXA20 MG PO; COREG6.25 MG PO; HYDROCODON-ACE1 EAC7 PO; LISINOPRIL5 MG PO; TRAZODONE HCL50 MG PO; ZOCOR20 MG PO
[2017-06-06 12:24] LABS: BASOPHILS 0.1 % (0-2); HEMATOCRIT 31.3 % (36.0-48.0); HEMOGLOBIN 9.9 g/dL (12-16); IMMATURE GRANULOCYTES 0.2 % (0-5); LYMPHOCYTES 16.3 % (15-50); MCH 27.3 pg (26.0-34.0); MCHC 31.6 g/dL (31.0-37.0); MCV 86.2 fL (80.0-100.0); MEAN PLATELET VOLUME 9.9 fL (7.4-10.4); MONOCYTES 10.5 % (2-11); NEUTROPHILS 71.9 % (40-80); PLATELET COUNT 255 10x3/uL (130-400); RBC 3.63 10x6/uL (4.00-5.40); RDW 14.6 % (11.5-14.5); WBC 10.6 10x3/uL (4.8-10.8)
[2017-06-06 12:34] LABS: UDS - AMPHET NEGATIVE QUAL (NEGATIVE); UDS - BARB NEGATIVE QUAL (NEGATIVE); UDS - BENZO NEGATIVE QUAL (NEGATIVE); UDS - COCAINE NEGATIVE QUAL (NEGATIVE); UDS - OPIATE NEGATIVE QUAL (NEGATIVE); UDS - PCP NEGATIVE QUAL (NEGATIVE); UDS - THC NEGATIVE QUAL (NEGATIVE)
[2017-06-06 12:35] LABS: APPEARANCE CLEAR (CLEAR); BILIRUBIN NEGATIVE (NEGATIVE); COLOR YELLOW (YELLOW); GLUCOSE NEGATIVE (NEGATIVE); KETONE SMALL mg/dL (NEGATIVE); NITRITE NEGATIVE (NEGATIVE); PROTEIN NEGATIVE (NEGATIVE)
[2017-06-06 12:47] LABS: ALBUMIN 2.5 g/dL (3.4-5.0); ANION GAP 13.2 mmol/L (8-16); BILIRUBIN - TOTAL 0.57 mg/dL (0.2-1.3); CALCIUM 8.8 mg/dL (8.5-10.1); CARBON DIOXIDE 25.5 mmol/L (21.0-32.0); POTASSIUM - SERUM 3.7 mmol/L (3.5-5.1); PROTEIN - SERUM 7.3 g/dL (6.4-8.2)
[2017-06-06 16:00] LABS: CHOL - HDL RATIO 2.5 ratio (2.3-4.1); LDL-HDL RATIO 1.1 ratio (1.5-3.5)
[2017-06-06] MEDS ORDERED: CORDARONE200 MG PO (17:48)
[2017-06-06] MEDS ORDERED: DEPAKOTE SPRIN125 MG PO (17:49)
[2017-06-06 17:53] VITALS: BP 115/66
[2017-06-06 17:54] VITALS: BMI 26.4
[2017-06-06 20:48] VITALS: BP 145/63
[2017-06-07 06:35] VITALS: BP 145/63
[2017-06-07 08:11] VITALS: BP 127/61
[2017-06-07 14:03] VITALS: Wt 61.2 kg
[2017-06-07 20:13] VITALS: BP 121/59
[2017-06-08 10:09] VITALS: BP 130/70
[2017-06-08 21:20] VITALS: BP 98/49
[2017-06-09 12:49] VITALS: BP 139/73
[2017-06-09 21:34] VITALS: BP 106/58
[2017-06-10 07:00] VITALS: BP 114/60
[2017-06-10 21:12] VITALS: BP 112/66
[2017-06-11 07:28] VITALS: BP 110/55
[2017-06-11 21:22] VITALS: BP 91/50
[2017-06-12 09:45] VITALS: BP 106/51
[2017-06-12 19:41] VITALS: BP 127/63
[2017-06-13 08:54] VITALS: BP 100/58
[2017-06-13 20:50] VITALS: BP 141/88
[2017-06-14 08:38] VITALS: BP 125/71
[2017-06-14 22:50] VITALS: BP 103/51
[2017-06-15 09:45] VITALS: BP 138/64
[2017-06-15 19:20] VITALS: BP 110/60
[2017-06-16 09:41] VITALS: BP 125/59
[2017-06-16 20:49] VITALS: BP 128/56
[2017-06-17 07:00] VITALS: BP 139/73
[2017-06-17 19:25] VITALS: BP 107/66
[2017-06-18 20:09] VITALS: BP 94/54
[2017-06-18 22:20] VITALS: BP 84/45
[2017-06-19 07:00] VITALS: BP 120/69
[2017-06-19 19:57] VITALS: BP 126/55
[2017-06-20 07:27] VITALS: BP 138/78
[2017-06-20] MEDS ORDERED: EFFEXOR50 MG PO (15:00)
[2017-06-20] MEDS ORDERED: LEVOXYL100 MCG PO (15:00)
[2017-06-20 21:29] VITALS: BP 106/60
[2017-06-21 10:04] VITALS: BP 121/75
== END 2017-06-21 19:46 | DRG 885 ==
LOC: D.ER 11:37 → D.PSYCH 15:00
PROVIDERS: Emergency Medicine; Psychiatry & Neurology Psychiatry
DX: F32.1 Major depressive disorder, single episode, moderate (principal); F02.81 Dementia in other diseases classified elsewhere, unspecified severity, with behavioral disturbance; R45.851 Suicidal ideations; G30.1 Alzheimer's disease with late onset; R26.9 Unspecified abnormalities of gait and mobility; M19.90 Unspecified osteoarthritis, unspecified site; E03.9 Hypothyroidism, unspecified; D64.9 Anemia, unspecified; I10 Essential (primary) hypertension; I25.10 Atherosclerotic heart disease of native coronary artery without angina pectoris; I25.2 Old myocardial infarction; E78.5 Hyperlipidemia, unspecified; Z95.810 Presence of automatic (implantable) cardiac defibrillator; M54.10 Radiculopathy, site unspecified; Z91.81 History of falling